=== PATIENT | female | born 2000 | race Hispanic/Latino ===

== ENCOUNTER 2024-06-04 19:50 | Emergency (ER) | payer BC ==
[~2024-06-04] VITALS: Ht 157.5 cm; Wt 102.1 kg
[~2024-06-04 19:50] MED LIST: BENZONATATE200 MG PO
[2024-06-04 21:10] VITALS: PULSE 72; RESP 18; TEMP 98.2
[2024-06-04] MEDS ORDERED: METRONIDAZOLE500 MG PO (22:52)
[2024-06-04] MEDS ORDERED: TERCONAZOLE80 MG VG (22:55)
[2024-06-04 23:15] VITALS: BP 107/67; PULSE 72; RESP 18; TEMP 98.2; O2SAT 99
== END 2024-06-04 23:21 | disposition home or self-care (01) ==
LOC: FSED 21:18
DX: N76.0 Acute vaginitis (principal)
CPT/HCPCS: 81003; 99284